=== PATIENT | female | born 1945 | race African-American/Black ===

== ENCOUNTER 2017-04-15 11:51 | Emergency (ER) | payer OTHER ==
[2017-04-15 12:47] VITALS: TEMP 98; BMI 36.8
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
[2017-04-15] MEDS ORDERED: KETOROLAC TROMETHAMINE 60 MG/2 ML VIAL IM ONE (13:58)
[2017-04-15] MEDS ORDERED: CYCLOBENZAPRINE HCL 10 MG TABLET (FP) PO ONE (13:58)
[2017-04-15] MEDS ORDERED: CYCLOBENZAPRINE HCL 10 MG TABLET (FP) ONE (14:12)
[2017-04-15] MEDS ORDERED: KETOROLAC TROMETHAMINE 60 MG/2 ML VIAL ONE (14:15)
[2017-04-15 16:36] VITALS: BP 127/70; PULSE 70
== END 2017-04-15 16:37 | disposition home or self-care (01) ==
LOC: JER 11:51
PROC: 3E0233Z Introduction of Anti-inflammatory into Muscle, Percutaneous Approach (ICD-10-PCS; principal; 2017-04-15)
DX: M47.816 Spondylosis without myelopathy or radiculopathy, lumbar region (principal); M54.32 Sciatica, left side
CPT/HCPCS: 72192-TC; 96372; 99281-25

== ENCOUNTER 2018-09-27 12:26 | Emergency (ER) | payer OTHER | END 2018-09-27 18:30 | disposition home or self-care (01) | LOC: JER 12:26 ==

== ENCOUNTER → 2018-10-02 | Emergency (ER) | payer OTHER | LOC: JER 16:05 ==

== ENCOUNTER 2020-02-01 17:30 | Emergency (ER) | payer OTHER ==
[2020-02-01 17:43] VITALS: BP 144/70; PULSE 58; TEMP 97.9; BMI 38.6
== END 2020-02-01 18:54 | disposition home or self-care (01) ==
LOC: JER 17:30
DX: I10 Essential (primary) hypertension (principal)
CPT/HCPCS: 99284-25

== ENCOUNTER 2020-12-28 19:28 | Inpatient (IN) | payer OTHER ==
[2020-12-28 19:40] VITALS: BMI 39.4
[2020-12-28 21:35] LABS: BASO % 0.4 % (0-2.0); EOS % 0.9 % (0-4.5); HEMATOCRIT 34.3 % (32.4-45.2); HEMOGLOBIN 11.5 GM/dL (10.7-15.3); LYMPH % 28.4 % (8-40); MCH 29.5 pg (25.7-33.7); MCHC 33.5 g/dl (32.0-36.0); MEAN CELL VOLUME 88.1 fl (80-96); MEAN PLT VOLUME 8.2 fl (7.5-11.1); MONO % 10.3 % (3.8-10.2); PLATELET COUNT 224 10^3/uL (134-434); RBC 3.89 M/mm3 (3.60-5.2); RDW 15.8 % (11.6-15.6); WHITE BLOOD COUNT 8.2 K/mm3 (4.0-10.0)
[2020-12-28 22:12] LABS: INR 0.99 (0.83-1.09); PROTHROMBIN TIME (PATIENT) 11.6 SEC (9.7-13.0)
[2020-12-28 22:15] LABS: ACTIVATED PTT 25.4 SECONDS (25.2-36.5)
[2020-12-28 22:22] LABS: CALCIUM 8.4 mg/dL (8.5-10.1)
[2020-12-28 22:23] LABS: ALBUMIN 3.4 g/dl (3.4-5.0); BLOOD UREA NITROGEN 24.4 mg/dL (7-18)
[2020-12-28 22:26] LABS: CREATININE 1.6 mg/dL (0.55-1.3)
[2020-12-28 22:27] LABS: BILIRUBIN,TOTAL 0.2 mg/dL (0.2-1)
[2020-12-28 22:28] LABS: TOT PROT 7.8 g/dl (6.4-8.2)
[2020-12-28 22:31] LABS: N-TERMINAL BNP 68.2 pg/ml (5-450)
[2020-12-28] MEDS ORDERED: ASPIRIN 81 MG CHEWABLE TABLETS PO ONE (22:35)
[2020-12-28] MEDS ORDERED: ASPIRIN 81 MG CHEWABLE TABLETS ONE (22:42)
[2020-12-28] MEDS ORDERED: ATORVASTATIN CA 80 MG TABLET (FP) PO ONE (22:49)
[2020-12-28] MEDS ORDERED: HEPARIN NA (PORCINE) 5,000 UNITS/ML 1ML VIAL IV ONE (22:58)
[2020-12-28] MEDS ORDERED: HEPARIN NA (PORCINE) 5,000 UNITS/ML 1ML VIAL ONE (23:48)
[2020-12-28] MEDS ORDERED: ATORVASTATIN CA 80 MG TABLET (FP) ONE (23:48)
[2020-12-29] MEDS: HEPARIN - 25,000 UNIT in SODIUM CHLORIDE 495 ML IV SCH (00:13)
[2020-12-29] MEDS ORDERED: GABAPENTIN 100 MG CAPSULE ONE (06:23)
[2020-12-29] MEDS: GABAPENTIN 300 MG CAPSULE PO SCH ×3 (06:39→21:50)
[2020-12-29 06:55] LABS: BASO % 0.7 % (0-2.0); EOS % 1.5 % (0-4.5); HEMATOCRIT 32.4 % (32.4-45.2); HEMOGLOBIN 11.1 GM/dL (10.7-15.3); LYMPH % 33.6 % (8-40); MCH 30.5 pg (25.7-33.7); MCHC 34.1 g/dl (32.0-36.0); MEAN CELL VOLUME 89.3 fl (80-96); MEAN PLT VOLUME 8.5 fl (7.5-11.1); NEUT % 56.2 % (42.8-82.8); PLATELET COUNT 223 10^3/uL (134-434); RBC 3.63 M/mm3 (3.60-5.2); WHITE BLOOD COUNT 8.1 K/mm3 (4.0-10.0)
[2020-12-29 07:23] LABS: ALBUMIN 3.1 g/dl (3.4-5.0); BLOOD UREA NITROGEN 21.6 mg/dL (7-18); CALCIUM 8.4 mg/dL (8.5-10.1)
[2020-12-29 07:26] LABS: CREATININE 1.3 mg/dL (0.55-1.3)
[2020-12-29 07:28] LABS: BILIRUBIN,TOTAL 0.3 mg/dL (0.2-1); TOT PROT 7.1 g/dl (6.4-8.2)
[2020-12-29] MEDS ORDERED: ASPIRIN 81 MG CHEWABLE TABLETS ONE (11:31)
[2020-12-29] MEDS ORDERED: ISOSORBIDE MONONITRATE 60 MG TAB.SR.24H (FP) PO ONE (11:31)
[2020-12-29] MEDS ORDERED: CLOPIDOGREL BISULFATE 75 MG TABLET (FP) ONE (11:32)
[2020-12-29] MEDS ORDERED: metoPROLOL SUCCINATE 25 MG TAB.SR.24H (FP) ONE (11:32)
[2020-12-29] MEDS ORDERED: PT OWN MED DRAWER 7, Y5N ONE (11:33)
[2020-12-29] MEDS: CLOPIDOGREL BISULFATE 75 MG TABLET (FP) PO SCH (12:05)
[2020-12-29] MEDS: RANOLAZINE E.R. 1,000 MG TABLET (FP) PO SCH ×2 (12:05→21:53)
[2020-12-29] MEDS: metoPROLOL SUCCINATE 25 MG TAB.SR.24H (FP) PO SCH (12:05)
[2020-12-29] MEDS: ISOSORBIDE MONONITRATE 30 MG TAB.SR.24H (FP) PO SCH (12:05)
[2020-12-29] MEDS: ASPIRIN 81 MG CHEWABLE TABLETS PO SCH (12:05)
[2020-12-29] MEDS ORDERED: RANOLAZINE E.R. 500 MG TABLET (FP) ONE (20:30)
[2020-12-29] MEDS: ROSUVASTATIN CA 10 MG TABLET (FP) PO SCH (21:52)
[2020-12-30] MEDS: INSULIN SLIDING SCALE (NOVOLOG) 1 VIAL SQ SCH ×5 (06:34→21:59)
[2020-12-30] MEDS: HEPARIN - 25,000 UNIT in SODIUM CHLORIDE 495 ML IV SCH (06:37)
[2020-12-30] MEDS: GABAPENTIN 300 MG CAPSULE PO SCH ×3 (06:40→21:43)
[2020-12-30 07:53] LABS: HEMATOCRIT 32.1 % (32.4-45.2); HEMOGLOBIN 10.7 GM/dL (10.7-15.3); MCH 29.9 pg (25.7-33.7); MCHC 33.3 g/dl (32.0-36.0); MEAN CELL VOLUME 89.8 fl (80-96); MEAN PLT VOLUME 8.6 fl (7.5-11.1); PLATELET COUNT 198 10^3/uL (134-434); RBC 3.58 M/mm3 (3.60-5.2); RDW 16.3 % (11.6-15.6); WHITE BLOOD COUNT 7.2 K/mm3 (4.0-10.0)
[2020-12-30 08:12] LABS: INR 0.98 (0.83-1.09); PROTHROMBIN TIME (PATIENT) 11.5 SEC (9.7-13.0)
[2020-12-30 08:15] LABS: ACTIVATED PTT 39.8 SECONDS (25.2-36.5)
[2020-12-30] MEDS ORDERED: RANOLAZINE E.R. 500 MG TABLET (FP) ONE ×2 (08:32→20:22)
[2020-12-30] MEDS: metoPROLOL SUCCINATE 25 MG TAB.SR.24H (FP) PO SCH (09:11)
[2020-12-30] MEDS: ISOSORBIDE MONONITRATE 30 MG TAB.SR.24H (FP) PO SCH (09:11)
[2020-12-30] MEDS: CLOPIDOGREL BISULFATE 75 MG TABLET (FP) PO SCH (09:11)
[2020-12-30] MEDS: ASPIRIN 81 MG CHEWABLE TABLETS PO SCH (09:11)
[2020-12-30] MEDS: RANOLAZINE E.R. 1,000 MG TABLET (FP) PO SCH ×2 (09:11→21:43)
[2020-12-30] MEDS: ROSUVASTATIN CA 10 MG TABLET (FP) PO SCH (21:44)
[2020-12-31] MEDS: GABAPENTIN 300 MG CAPSULE PO SCH ×3 (06:28→21:33)
[2020-12-31] MEDS: INSULIN SLIDING SCALE (NOVOLOG) 1 VIAL SQ SCH ×4 (06:49→21:34)
[2020-12-31] MEDS ORDERED: RANOLAZINE E.R. 500 MG TABLET (FP) ONE ×2 (08:15→20:58)
[2020-12-31] MEDS: CLOPIDOGREL BISULFATE 75 MG TABLET (FP) PO SCH (09:22)
[2020-12-31] MEDS: ASPIRIN 81 MG CHEWABLE TABLETS PO SCH (09:22)
[2020-12-31] MEDS: DOCUSATE SODIUM 100 MG CAPSULE (FP) PO SCH ×2 (09:22→21:33)
[2020-12-31] MEDS: ISOSORBIDE MONONITRATE 30 MG TAB.SR.24H (FP) PO SCH (09:22)
[2020-12-31] MEDS: metoPROLOL SUCCINATE 25 MG TAB.SR.24H (FP) PO SCH (09:23)
[2020-12-31] MEDS: RANOLAZINE E.R. 1,000 MG TABLET (FP) PO SCH ×2 (09:23→21:34)
[2020-12-31] MEDS: POLYETHYLENE GLYCOL (HEALTHYLAX) 3350 17 GM PACKET PO SCH (09:23)
[2020-12-31] MEDS: ROSUVASTATIN CA 10 MG TABLET (FP) PO SCH (21:33)
[2021-01-01] MEDS: GABAPENTIN 300 MG CAPSULE PO SCH (06:03)
[2021-01-01] MEDS: INSULIN SLIDING SCALE (NOVOLOG) 1 VIAL SQ SCH ×2 (06:03→11:35)
[2021-01-01] MEDS ORDERED: LEVOTHYROXINE NA 125 MCG TABLET (FP) PO SCH (07:00)
[2021-01-01 07:57] LABS: BASO % 0.2 % (0-2.0); EOS % 2.1 % (0-4.5); HEMATOCRIT 31.3 % (32.4-45.2); HEMOGLOBIN 10.4 GM/dL (10.7-15.3); LYMPH % 30.7 % (8-40); MCH 29.9 pg (25.7-33.7); MCHC 33.1 g/dl (32.0-36.0); MEAN CELL VOLUME 90.2 fl (80-96); MEAN PLT VOLUME 8.8 fl (7.5-11.1); MONO % 6.9 % (3.8-10.2); NEUT % 60.1 % (42.8-82.8); PLATELET COUNT 202 10^3/uL (134-434); RBC 3.48 M/mm3 (3.60-5.2); WHITE BLOOD COUNT 7.7 K/mm3 (4.0-10.0)
[2021-01-01 08:28] LABS: ALBUMIN 2.6 g/dl (3.4-5.0); BLOOD UREA NITROGEN 22.9 mg/dL (7-18); CALCIUM 8.8 mg/dL (8.5-10.1)
[2021-01-01 08:32] LABS: CREATININE 1.3 mg/dL (0.55-1.3)
[2021-01-01 08:33] LABS: BILIRUBIN,TOTAL 0.2 mg/dL (0.2-1); TOT PROT 6.6 g/dl (6.4-8.2)
[2021-01-01] MEDS ORDERED: RANOLAZINE E.R. 500 MG TABLET (FP) ONE (09:15)
[2021-01-01] MEDS: DOCUSATE SODIUM 100 MG CAPSULE (FP) PO SCH (09:51)
[2021-01-01] MEDS: ASPIRIN 81 MG CHEWABLE TABLETS PO SCH (09:51)
[2021-01-01] MEDS: ISOSORBIDE MONONITRATE 30 MG TAB.SR.24H (FP) PO SCH (09:51)
[2021-01-01] MEDS: POLYETHYLENE GLYCOL (HEALTHYLAX) 3350 17 GM PACKET PO SCH (09:51)
[2021-01-01] MEDS: RANOLAZINE E.R. 1,000 MG TABLET (FP) PO SCH (09:51)
[2021-01-01] MEDS: metoPROLOL SUCCINATE 25 MG TAB.SR.24H (FP) PO SCH (09:52)
[2021-01-01] MEDS: CLOPIDOGREL BISULFATE 75 MG TABLET (FP) PO SCH (09:52)
[2021-01-01 12:35] VITALS: BP 108/69; PULSE 75; TEMP 98.4
== END 2021-01-01 13:45 | disposition short-term general hospital (02) | DRG 303 ==
LOC: JER 19:28 → JERBED 20:39 → J4W 12-29 15:36
PROVIDERS: ADMIT Internal Medicine; ATTEND Internal Medicine
DX: I25.110 Atherosclerotic heart disease of native coronary artery with unstable angina pectoris (principal); E03.9 Hypothyroidism, unspecified; E11.51 Type 2 diabetes mellitus with diabetic peripheral angiopathy without gangrene; E78.5 Hyperlipidemia, unspecified; I10 Essential (primary) hypertension; I73.9 Peripheral vascular disease, unspecified; E66.9 Obesity, unspecified; Z68.39 Body mass index [BMI] 39.0-39.9, adult
CPT/HCPCS: 36415; 71045-TC-FY; 80053; 82550; 82553; 82962; 83735; 83880; 84439; 84443; 84484; 85025; 85027; 85610; 85730; 93005; 93010; 93306-TC; 99285-25; C9803; J1644; U0003; U0005

== ENCOUNTER 2022-06-10 11:40 | Observation (INO) | payer OTHER ==
[2022-06-10 13:20] LABS: ALBUMIN 3.5 g/dl (3.4-5.0); BILIRUBIN,TOTAL 0.4 mg/dl (0.2-1); CALCIUM 8.9 mg/dl (8.5-10); CREATININE 1.4 mg/dl (0.55-1.3); TOT PROT 7.9 g/dl (6.4-8.2)
[2022-06-10 14:42] LABS: VENOUS BASE EXCESS 1.6 mmol/L (-2-2); VENOUS O2 SATURATION 57.6 % (70-80); VENOUS PCO2 53.1 mmHg (38-52); VENOUS PH 7.343 (7.310-7.410)
[2022-06-10 14:59] LABS: N-TERMINAL BNP 119.3 pg/ml (5-450)
[2022-06-10 15:07] LABS: LACTIC ACID 2.3 mmol/L (0.4-2.0)
[2022-06-10] MEDS ORDERED: SODIUM CHLORIDE 1,000 ML IV SCH (15:45)
[2022-06-10 18:08] LABS: BASO % 0.6 % (0-2.0); EOS % 1.3 % (0-4.5); HEMATOCRIT 35.6 % (32.4-45.2); HEMOGLOBIN 11.7 GM/dL (10.7-15.3); LYMPH % 34.3 % (8-40); MCH 28.3 pg (25.7-33.7); MCHC 32.8 g/dl (32.0-36.0); MEAN CELL VOLUME 86.2 fl (80-96); MEAN PLT VOLUME 8.6 fl (7.5-11.1); NEUT % 55.8 % (42.8-82.8); PLATELET COUNT 248 10^3/uL (134-434); RBC 4.13 M/mm3 (3.60-5.2); RDW 16.7 % (11.6-15.6); WHITE BLOOD COUNT 8.7 K/mm3 (4.0-10.0)
[2022-06-10 18:19] VITALS: BMI 39.7
[2022-06-10] MEDS: INSULIN SLIDING SCALE (NOVOLOG) 1 VIAL SQ SCH ×2 (18:31→21:32)
[2022-06-10] MEDS: RANOLAZINE E.R. 1,000 MG TABLET (FP) PO SCH (21:28)
[2022-06-10] MEDS: ROSUVASTATIN CA 5 MG TABLET PO SCH (21:28)
[2022-06-10] MEDS: INSULIN (LEVEMIR) 100 UNITS/ML UNITS SQ SCH (21:31)
[2022-06-10 22:30] LABS: LACTIC ACID 2.1 mmol/L (0.4-2.0)
[2022-06-11] MEDS: ACETAMINOPHEN 325 MG TABLET (FP) PO PRN ×2 (03:18→09:37)
[2022-06-11] MEDS: INSULIN SLIDING SCALE (NOVOLOG) 1 VIAL SQ SCH ×4 (06:25→21:10)
[2022-06-11] MEDS: LEVOTHYROXINE NA 125 MCG TABLET (FP) PO SCH (06:26)
[2022-06-11 08:15] LABS: ALBUMIN 3.2 g/dl (3.4-5.0); BILIRUBIN,TOTAL 0.4 mg/dl (0.2-1); CALCIUM 8.4 mg/dl (8.5-10); CREATININE 1.2 mg/dl (0.55-1.3); MAGNESIUM 1.9 mg/dL (1.8-2.4); TOT PROT 7.2 g/dl (6.4-8.2)
[2022-06-11 09:10] LABS: BASO % 0.4 % (0-2.0); EOS % 1.7 % (0-4.5); HEMATOCRIT 33.2 % (32.4-45.2); HEMOGLOBIN 11.2 GM/dL (10.7-15.3); LYMPH % 37.9 % (8-40); MCH 29.2 pg (25.7-33.7); MCHC 33.7 g/dl (32.0-36.0); MEAN CELL VOLUME 86.4 fl (80-96); MEAN PLT VOLUME 8.9 fl (7.5-11.1); MONO % 7.7 % (3.8-10.2); NEUT % 52.3 % (42.8-82.8); PLATELET COUNT 222 10^3/uL (134-434); RBC 3.84 M/mm3 (3.60-5.2); RDW 16.5 % (11.6-15.6); WHITE BLOOD COUNT 7.5 K/mm3 (4.0-10.0)
[2022-06-11 09:33] VITALS: RESP 18
[2022-06-11] MEDS: ASPIRIN COATED 81 MG TABLET.EC PO SCH (09:37)
[2022-06-11] MEDS: amLODIPine BESYLATE 2.5 MG TABLET (FP) PO SCH (09:37)
[2022-06-11] MEDS: metoPROLOL SUCCINATE 25 MG TAB.SR.24H (FP) PO SCH (09:37)
[2022-06-11] MEDS: RANOLAZINE E.R. 1,000 MG TABLET (FP) PO SCH ×2 (09:37→21:04)
[2022-06-11] MEDS: CLOPIDOGREL BISULFATE 75 MG TABLET (FP) PO SCH (09:37)
[2022-06-11] MEDS: ROSUVASTATIN CA 5 MG TABLET PO SCH (21:04)
[2022-06-11] MEDS: INSULIN (LEVEMIR) 100 UNITS/ML UNITS SQ SCH (21:06)
[2022-06-12] MEDS: INSULIN SLIDING SCALE (NOVOLOG) 1 VIAL SQ SCH ×2 (07:01→11:38)
[2022-06-12] MEDS: LEVOTHYROXINE NA 125 MCG TABLET (FP) PO SCH (07:02)
[2022-06-12] MEDS: RANOLAZINE E.R. 1,000 MG TABLET (FP) PO SCH (10:03)
[2022-06-12] MEDS: metoPROLOL SUCCINATE 25 MG TAB.SR.24H (FP) PO SCH (10:03)
[2022-06-12] MEDS: ASPIRIN COATED 81 MG TABLET.EC PO SCH (10:03)
[2022-06-12] MEDS: amLODIPine BESYLATE 2.5 MG TABLET (FP) PO SCH (10:03)
[2022-06-12] MEDS: CLOPIDOGREL BISULFATE 75 MG TABLET (FP) PO SCH (10:03)
[2022-06-12] MEDS: ACETAMINOPHEN 325 MG TABLET (FP) PO PRN (10:04)
[2022-06-12 13:27] VITALS: BP 145/72; PULSE 65; TEMP 98.2
== END 2022-06-12 13:31 | disposition home or self-care (01) ==
LOC: FER 11:40 → SUPCPDRO 11:40 → FM/S 15:04
PROVIDERS: ADMIT Internal Medicine
PROC: 3E013VG Introduction of Insulin into Subcutaneous Tissue, Percutaneous Approach (ICD-10-PCS; principal; 2022-06-10)
PROC: 3E0337Z Introduction of Electrolytic and Water Balance Substance into Peripheral Vein, Percutaneous Approach (ICD-10-PCS; 2022-06-10)
DX: R55 Syncope and collapse (principal); I10 Essential (primary) hypertension; E11.9 Type 2 diabetes mellitus without complications; Z85.42 Personal history of malignant neoplasm of other parts of uterus; E66.8 Other obesity; Z68.39 Body mass index [BMI] 39.0-39.9, adult; E03.9 Hypothyroidism, unspecified; I73.9 Peripheral vascular disease, unspecified
CPT/HCPCS: 0241U-QW; 36415; 70450-TC; 71045-TC-FY; 72170-TC-FY; 80053; 81003; 82607; 82728; 82746; 82803; 82962; 83540; 83550; 83605; 83690; 83735; 83880; 84100; 84439; 84443; 84484; 85025; 87040; 87086; 87186; 93005; 96372; 97116-GP; 97162-GP; 99285-25; G0378

== ENCOUNTER 2023-10-15 16:15 | Emergency (ER) | payer OTHER ==
[2023-10-15 16:31] VITALS: BP 141/49; PULSE 71; RESP 20; TEMP 98.1; BMI 37.8
[2023-10-15] MEDS ORDERED: ACETAMINOPHEN INJECTION 100 ML IVPB ONE (16:49)
[2023-10-15] MEDS ORDERED: METOCLOPRAMIDE HCL INJECTION 10 MG/2 ML VIAL ONE ×2 (16:49→18:21)
[2023-10-15 17:11] LABS: HEMATOCRIT 38.7 % (32.4-45.2); HEMOGLOBIN 11.9 G/dL (10.7-15.3); MCH 28.7 pg (25.7-33.7); MCHC 30.6 g/dl (32.0-36.0); MEAN CELL VOLUME 93.6 fl (80-96); MEAN PLT VOLUME 9.3 fl (7.5-11.1); RBC 4.13 10^6/uL (3.60-5.2); RDW 15.3 % (11.6-15.6); WHITE BLOOD COUNT 10.7 10^3/uL (4.0-10.8)
[2023-10-15 17:32] LABS: ALBUMIN 3.6 g/dl (3.4-5.0); BILIRUBIN,TOTAL 0.2 mg/dl (0.2-1); CALCIUM 8.4 mg/dl (8.5-10.1); CREATININE 1.8 mg/dl (0.6-1.3); POTASSIUM 4.2 mmol/L (3.5-5.1); TOT PROT 6.9 g/dl (6.4-8.2)
[2023-10-15 17:34] LABS: PLATELET COUNT 138.9 10^3/uL (134-434)
[2023-10-15 17:35] LABS: PLATELET ESTIMATE ADEQUATE
[2023-10-15] MEDS: METOCLOPRAMIDE HCL INJECTION 10 MG/2 ML VIAL IVPUSH ONE (18:19)
[2023-10-15] MEDS: ACETAMINOPHEN 1000 MG/100 ML BAG IVPB ONE (18:19)
[2023-10-15] MEDS: SODIUM CHLORIDE 0.9% 500 ML INFUS.BAG IV ONE (18:19)
[2023-10-15 18:28] LABS: N-TERMINAL BNP 175.9 pg/ml (5-450)
[2023-10-15 20:57] LABS: ALBUMIN 3.6 g/dl (3.4-5.0); BILIRUBIN,TOTAL 0.3 mg/dl (0.2-1); CALCIUM 8.2 mg/dl (8.5-10.1); CREATININE 1.7 mg/dl (0.6-1.3); POTASSIUM 4.1 mmol/L (3.5-5.1); TOT PROT 6.9 g/dl (6.4-8.2)
== END 2023-10-15 22:05 | disposition home or self-care (01) ==
LOC: FER 16:15
PROC: 3E033NZ Introduction of Analgesics, Hypnotics, Sedatives into Peripheral Vein, Percutaneous Approach (ICD-10-PCS; principal; 2023-10-15)
PROC: 3E033GC Introduction of Other Therapeutic Substance into Peripheral Vein, Percutaneous Approach (ICD-10-PCS; 2023-10-15)
DX: R51.9 Headache, unspecified (principal); N28.9 Disorder of kidney and ureter, unspecified; E11.9 Type 2 diabetes mellitus without complications; R07.9 Chest pain, unspecified; Z20.822 Contact with and (suspected) exposure to COVID-19
CPT/HCPCS: 0241U-QW; 36415; 70450-TC; 80053; 81003; 83880; 84484; 85027; 93005; 99285-25; J0131

== ENCOUNTER 2024-06-03 18:44 | Inpatient (IN) | payer OTHER ==
[2024-06-03 21:18] LABS: ABSOLUTE IMMATURE GRANULOCYTES 0.04 x10^3/uL (0.0-0.031); BASOPHILS # 0.02 x10^3/uL (0.01-0.08); EOSINOPHILS # 0.09 x10^3/uL (0.04-0.36); HEMATOCRIT 38.1 % (34.1-44.9); HEMOGLOBIN 12.6 g/dL (11.2-15.7); MCHC 33.1 g/dl (32.2-35.5); MEAN CELL VOLUME 85.8 fl (79.4-94.8); MEAN PLT VOLUME 10.5 fl (9.4-12.3); MONOCYTE # 0.66 x10^3/uL (0.24-0.86); MONOCYTE % 7.2 % (4.7-12.5); PLATELET COUNT 206 x10^3/uL (182-369)
[2024-06-03 21:58] LABS: CHLORIDE 103 mmol/L (98-107); SODIUM 131 mmol/L (136-145)
[2024-06-03 22:00] LABS: BLOOD UREA NITROGEN 18.2 mg/dL (7-18); CALCIUM 8.4 mg/dL (8.5-10.1); CO2 27 mmol/L (21-32); GLUCOSE,RANDOM 191 mg/dL (74-106); MAGNESIUM 2.6 mg/dL (1.8-2.4)
[2024-06-03 22:02] LABS: EPI CELLS 27 /uL (0-25.1); HYALINE CASTS 0 /uL (0-3.1); PH,URINE 6.5 (5.0-8.0); URINE APPEARANCE CLEAR; URINE BACTERIA 324 /uL (0-1359); URINE BILIRUBIN NEGATIVE (NEGATIVE); URINE COLOR YELLOW; URINE GLUCOSE (UA) 3+ (NEGATIVE); URINE KETONE NEGATIVE (NEGATIVE); URINE LEUK ESTERASE 1+ (NEGATIVE); URINE NITRITE NEGATIVE (NEGATIVE); URINE PROTEIN NEGATIVE (NEGATIVE); URINE RBC 12 /uL (0-23.9); URINE UROBILINOGEN 0.2 mg/dL (0.2-1.0); URINE WBC 93 /uL (0-25.8)
[2024-06-03 22:03] LABS: SGOT/AST 109 U/L (15-37)
[2024-06-03 22:04] LABS: CREATININE 1.7 mg/dL (0.55-1.3)
[2024-06-03 22:05] LABS: BILIRUBIN,TOTAL 0.3 mg/dL (0.2-1); TOT PROT 8.2 g/dl (6.4-8.2)
[2024-06-03 22:06] LABS: ALK PHOS 74 U/L (45-117)
[2024-06-03 22:09] LABS: ANION GAP 1 mmol/L (4-13); POTASSIUM > 10.0 mmol/L (3.5-5.1); SGPT/ALT 27 U/L (13-61)
[2024-06-03] MEDS ORDERED: CEFTRIAXONE 1 G/50 ML PREMIX 50 ML IVPB ONE (22:23)
[2024-06-03] MEDS: SODIUM CHLORIDE 1,000 ML IV STA (23:44)
[2024-06-03 23:48] LABS: POTASSIUM 4.7 mmol/L (3.5-5.1)
[2024-06-03 23:50] LABS: CALCIUM 8.6 mg/dL (8.5-10.1)
[2024-06-03 23:51] LABS: ALBUMIN 3.1 g/dl (3.4-5.0); BLOOD UREA NITROGEN 18.6 mg/dL (7-18)
[2024-06-03 23:54] LABS: CREATININE 1.6 mg/dL (0.55-1.3)
[2024-06-03 23:56] LABS: BILIRUBIN,TOTAL 0.2 mg/dL (0.2-1); TOT PROT 7.2 g/dl (6.4-8.2)
[2024-06-04] MEDS: ACETAMINOPHEN 325 MG TABLET (FP) PO PRN (02:47)
[2024-06-04 03:29] VITALS: BMI 38.0
[2024-06-04] MEDS: INSULIN ASPART SLIDING SCALE (NOVOLOG) 1 VIAL SQ SCH (06:11)
[2024-06-04 07:56] LABS: ABSOLUTE IMMATURE GRANULOCYTES 0.02 x10^3/uL (0.0-0.031); BASOPHILS # 0.03 x10^3/uL (0.01-0.08); EOSINOPHIL % 1.8 % (0.7-5.8); EOSINOPHILS # 0.15 x10^3/uL (0.04-0.36); HEMATOCRIT 35.7 % (34.1-44.9); HEMOGLOBIN 11.6 g/dL (11.2-15.7); MCHC 32.5 g/dl (32.2-35.5); MEAN PLT VOLUME 10.5 fl (9.4-12.3); MONOCYTE # 0.66 x10^3/uL (0.24-0.86); MONOCYTE % 8.1 % (4.7-12.5); PLATELET COUNT 202 x10^3/uL (182-369); RDW 15.8 % (12.4-16.6)
[2024-06-04 08:07] LABS: INR 1.03 (0.83-1.09); PROTHROMBIN TIME (PATIENT) 11.2 SEC (9.7-13.0)
[2024-06-04 08:08] LABS: ACTIVATED PTT 28.7 SECONDS (25.2-36.5)
[2024-06-04 08:10] LABS: BLOOD UREA NITROGEN 15.8 mg/dL (7-18); CALCIUM 8.8 mg/dL (8.5-10.1)
[2024-06-04 08:11] LABS: MAGNESIUM 2.5 mg/dL (1.8-2.4)
[2024-06-04 08:14] LABS: CREATININE 1.4 mg/dL (0.55-1.3); PHOSPHOROUS 3.7 mg/dL (2.5-4.9)
[2024-06-04] MEDS: amLODIPine BESYLATE 2.5 MG TABLET (FP) PO SCH (09:17)
[2024-06-04] MEDS: LEVOTHYROXINE NA 125 MCG TABLET (FP) PO SCH (09:17)
[2024-06-04] MEDS: ASPIRIN 81 MG CHEWABLE TABLETS PO SCH (09:39)
[2024-06-04] MEDS: ROSUVASTATIN CA 10 MG TABLET PO SCH (21:10)
[2024-06-04] MEDS: DOCUSATE SODIUM 100 MG CAPSULE (FP) PO PRN (21:10)
[2024-06-06 07:29] LABS: ABSOLUTE IMMATURE GRANULOCYTES 0.02 x10^3/uL (0.0-0.031); BASOPHILS # 0.02 x10^3/uL (0.01-0.08); EOSINOPHIL % 2.9 % (0.7-5.8); EOSINOPHILS # 0.23 x10^3/uL (0.04-0.36); HEMATOCRIT 37.5 % (34.1-44.9); HEMOGLOBIN 11.8 g/dL (11.2-15.7); MCHC 31.5 g/dl (32.2-35.5); MEAN CELL VOLUME 89.5 fl (79.4-94.8); MONOCYTE # 0.65 x10^3/uL (0.24-0.86); MONOCYTE % 8.1 % (4.7-12.5); PLATELET COUNT 184 x10^3/uL (182-369); RDW 16.2 % (12.4-16.6)
[2024-06-06 07:52] LABS: POTASSIUM 4.4 mmol/L (3.5-5.1)
[2024-06-06 07:54] LABS: CALCIUM 8.7 mg/dL (8.5-10.1)
[2024-06-06 07:55] LABS: BLOOD UREA NITROGEN 22.6 mg/dL (7-18)
[2024-06-06 07:58] LABS: CREATININE 1.3 mg/dL (0.55-1.3)
[2024-06-06 08:00] LABS: BILIRUBIN,TOTAL 0.2 mg/dL (0.2-1)
[2024-06-07 07:19] LABS: ABSOLUTE IMMATURE GRANULOCYTES 0.02 x10^3/uL (0.0-0.031); BASOPHILS # 0.02 x10^3/uL (0.01-0.08); EOSINOPHILS # 0.27 x10^3/uL (0.04-0.36); HEMATOCRIT 33.8 % (34.1-44.9); HEMOGLOBIN 10.8 g/dL (11.2-15.7); MEAN CELL VOLUME 88.3 fl (79.4-94.8); MEAN PLT VOLUME 11.4 fl (9.4-12.3); MONOCYTE % 8.8 % (4.7-12.5); PLATELET COUNT 187 x10^3/uL (182-369); RDW 15.9 % (12.4-16.6)
[2024-06-07 07:56] LABS: CALCIUM 8.6 mg/dL (8.5-10.1)
[2024-06-07 07:57] LABS: ALBUMIN 2.8 g/dl (3.4-5.0); BLOOD UREA NITROGEN 24.1 mg/dL (7-18)
[2024-06-07 08:01] LABS: BILIRUBIN,TOTAL 0.4 mg/dL (0.2-1); CREATININE 1.5 mg/dL (0.55-1.3)
[2024-06-07 08:02] LABS: TOT PROT 6.8 g/dl (6.4-8.2)
[2024-06-08 11:00] VITALS: BP 130/55; PULSE 81; RESP 19; TEMP 98.9
== END 2024-06-08 12:07 | disposition home health service (06) | DRG 312 ==
LOC: JER 18:44 → JERBED 22:15 → J4W 06-04 01:41 → OBSVTOIN 06-04 11:02
PROVIDERS: ADMIT Hospitalist; ATTEND Internal Medicine
DX: R55 Syncope and collapse (principal); I50.32 Chronic diastolic (congestive) heart failure; E11.51 Type 2 diabetes mellitus with diabetic peripheral angiopathy without gangrene; I11.0 Hypertensive heart disease with heart failure; I49.9 Cardiac arrhythmia, unspecified; E03.9 Hypothyroidism, unspecified; I12.9 Hypertensive chronic kidney disease with stage 1 through stage 4 chronic kidney disease, or unspecified chronic kidney disease; E11.40 Type 2 diabetes mellitus with diabetic neuropathy, unspecified; N18.9 Chronic kidney disease, unspecified; E78.5 Hyperlipidemia, unspecified; E66.9 Obesity, unspecified; Z68.38 Body mass index [BMI] 38.0-38.9, adult
CPT/HCPCS: 36415; 70450-TC; 71045-TC-FY; 76775-TC; 80048; 80053; 81003; 82962; 83036; 83735; 83880; 84100; 84439; 84443; 84484; 85025; 85610; 85730; 86850; 86900; 86901; 87086; 93005; 93010; 93306-TC; 93880-TC; 97116-GP; 97162-GP; 99285-25; G0378